=== PATIENT | male | born 1985 | race American Indian/Alaskan Native ===

== ENCOUNTER 2021-10-19 22:25 | Inpatient (IN) | payer SELFPAY ==
[2021-10-19] MEDS ORDERED: ALBUTEROL 2.5 MG/3 ML NEBU IH ONE ×2 (22:36)
[2021-10-19] MEDS ORDERED: IPRATROPIUM 0.02% NEBU 2.5 ML IH ONE ×2 (22:36)
[2021-10-19 23:35] LABS: INR 0.91 (0.87-1.13)
[2021-10-19 23:40] LABS: Creatine Kinase MB 1.6 ng/mL (0.0-4.0)
[2021-10-19 23:41] LABS: Alanine Aminotransferase 16 units/L (7-56); Albumin 4.9 g/dL (3.9-5); Blood Urea Nitrogen 12 mg/dL (9-20); Calcium 9.6 mg/dL (8.4-10.2); Hemolysis Index 19
[2021-10-19 23:42] LABS: BUN/Creatinine Ratio 17
--- NOTE | 2021-10-19 23:46 | XRay Report ---
CHEST 1 VIEW 10/19/2021 10:28 PM INDICATION / CLINICAL INFORMATION: Dyspnea. COMPARISON: None available. FINDINGS: SUPPORT DEVICES: None. HEART / MEDIASTINUM: No significant abnormality. LUNGS / PLEURA: No significant pulmonary or pleural abnormality. No pneumothorax. ADDITIONAL FINDINGS: No significant additional findings. IMPRESSION: No acute abnormality. Signer Name: Reinier Burgos MD Signed: 10/19/2021 11:42 PM Workstation Name: [id number]
[2021-10-20 00:13] LABS: Hemoglobin 14.2 gm/dl (11.8-15.2)
[2021-10-20 00:14] LABS: Mean Corpuscular HGB Conc 33 % (32-34); Mean Corpuscular Volume 91 fl (84-94); Platelet Count 334 K/mm3 (140-440); Red Cell Distribution Width 13.5 % (13.2-15.2)
[2021-10-20 01:05] LABS: ABG Base Excess -0.2 mmol/L (-2.0-3.0); ABG HCO3 26.3 mmol/L (20.0-26.0); ABG Methemoglobin 0.6 % (0.0-1.5); ABG Oxygen Saturation 87.6 % (95.0-99.0); ABG PH 7.339 pH Units (7.350-7.450); ABG PO2 54.4 mm Hg (80.0-90.0)
[2021-10-20 01:10] LABS: Basophils % (Manual) 0 % (0.0-1.8); RBC Morphology Normal; Total Cells Counted 100
[2021-10-20 01:11] LABS: Large Platelets Rare; Platelet Estimate Consistent w Auto
--- NOTE | 2021-10-20 05:33 | Emergency Department Report ---
ED General Adult HPI - General Chief complaint: Dyspnea/Respdistress Stated complaint: RESPIRATORY DISTRESS PUI?: No Time Seen by Provider: 10/19/21 22:34 Source: patient Mode of arrival: Stretcher Limitations: No Limitations - History of Present Illness Initial comments: SOB and GLENYS , pt has history of bronchitis denies any COPD or CHF fever or cough, has been given albuterol and steriods and mg en route here , was brought in on cpap, -: Gradual, days(s) Location: chest Radiation: non-radiation Improves with: none Worsens with: none Associated Symptoms: cough. denies: denies other symptoms, confusion Treatments Prior to Arrival: none - Related Data Allergies Allergy/AdvReac Type Severity Reaction Status Date / Time No Known Allergies Allergy Verified 10/19/21 23:38 ED Review of Systems ROS: Stated complaint: RESPIRATORY DISTRESS Other details as noted in HPI Constitutional: denies: chills, fever Eyes: denies: eye pain, eye discharge, vision change ENT: denies: ear pain, throat pain Respiratory: denies: cough, shortness of breath, wheezing Cardiovascular: denies: chest pain, palpitations Endocrine: no symptoms reported Gastrointestinal: denies: abdominal pain, nausea, diarrhea Genitourinary: denies: urgency, dysuria Musculoskeletal: denies: back pain, joint swelling, arthralgia Skin: denies: rash, lesions Neurological: denies: headache, weakness, paresthesias Psychiatric: denies: anxiety, depression Hematological/Lymphatic: denies: easy bleeding, easy bruising ED Past Medical Hx - Past Medical History Previous Medical History?: No Hx Hypertension: No ED Physical Exam - General Limitations: No Limitations General appearance: alert, anxious, in distress - Head Head exam: Present: atraumatic, normocephalic - Eye Eye exam: Present: normal appearance - ENT ENT exam: Present: mucous membranes moist - Neck Neck exam: Present: normal inspection - Respiratory Respiratory exam: Present: wheezes, rhonchi. Absent: respiratory distress - Cardiovascular Cardiovascular Exam: Present: regular rate, normal rhythm. Absent: systolic murmur, diastolic murmur, rubs, gallop - GI/Abdominal GI/Abdominal exam: Present: soft, normal bowel sounds - Rectal Rectal exam: Present: deferred - Extremities Exam Extremities exam: Present: normal inspection - Back Exam Back exam: Present: normal inspection - Neurological Exam Neurological exam: Present: alert, oriented X3 - Psychiatric Psychiatric exam: Present: normal affect, normal mood - Skin Skin exam: Present: warm, dry, intact, normal color. Absent: rash ED Course Vital Signs 10/19/21 10/19/21 10/20/21 23:20 23:48 01:15 Temperature 98.6 F Pulse Rate 100 H Pulse Rate [ 112 H Anterior Bilateral] Respiratory 20 Rate Respiratory 20 Rate [Anterior Bilateral] Blood Pressure 180/100 [Right] O2 Sat by Pulse 97 96 Oximetry ED Medical Decision Making - Lab Data Result diagrams: 10/19/21 22:58 10/19/21 22:58 Critical care attestation.: If time is entered above; I have spent that time in minutes in the direct care of this critically ill patient, excluding procedure time. ED Disposition Clinical Impression: SOB (shortness of breath), Hypoxia, Bronchitis Disposition: ADMITTED INPATIENT Is pt being admited?: Yes Does the pt Need Aspirin: No Condition: Stable Instructions: Chronic Bronchitis (ED) Referrals: PRIMARY CARE, [Primary Care Provider] - 3-5 Days
[2021-10-20] MEDS ORDERED: MORPHINE 2 MG/1 ML INJ IV PRN (05:53)
[2021-10-20] MEDS ORDERED: ALBUTEROL 2.5 MG/3 ML NEBU IH PRN (05:53)
[2021-10-20] MEDS ORDERED: ONDANSETRON 4 MG/2 ML INJ IV PRN (05:53)
[2021-10-20] MEDS ORDERED: ACETAMINOPHEN 325 MG TAB PO PRN (05:53)
[2021-10-20] MEDS ORDERED: MORPHINE 4 MG/1 ML INJ IV PRN (05:53)
[2021-10-20] MEDS ORDERED: AZITHROMYCIN/NS 500 MG/250 ML 500 MG/250 ML BAG IV SCH (06:00)
--- NOTE | 2021-10-20 06:01 | History and Physical Report ---
History of Present Illness Date of examination: 10/20/21 Date of admission: 10/20/21 Chief complaint: Dyspnea Hypoxia History of present illness: 36 years male with history of bronchitis and smoking weed was brought to the emergency room because of progressive shortness of breath. Patient denied any fever or cough. Patient has a history of a smoking weed patient has been given albuterol and a steroid and magnesium in route here patient was brought in on CPAP. In the emergency room patient blood gas shows pH 7.339. PCO2 50.0, PO2 54.4, bicarb 26.3, O2 sat 87.6. As soon as patient is off oxygen O2 sat dropped to 80s. We are going to admit the patient we will put the patient on breathing treatment and a steroid and antibiotic Past History Past Medical History: other (Bronchitis and smoking weed) Past Surgical History: No surgical history Social history: smoking Family history: hypertension Medications and Allergies Allergies Allergy/AdvReac Type Severity Reaction Status Date / Time No Known Allergies Allergy Verified 10/19/21 23:38 Active Meds: Active Medications Levofloxacin/Dextrose (Levaquin 500mg/100ml) 500 mg in 100 mls @ 100 mls/hr IV ONCE ONE; Protocol Stop: 10/20/21 06:49 Review of Systems All systems: negative Cardiovascular: shortness of breath, dyspnea on exertion Respiratory: cough, shortness of breath, dyspnea on exertion, wheezing Exam - Constitutional Vitals: Temp Pulse Resp BP Pulse Ox 98.6 F 100 H 20 180/100 96 10/19/21 23:48 10/19/21 23:48 10/19/21 23:48 10/19/21 23:48 10/20/21 01:15 General appearance: Present: no acute distress, well-nourished - EENT Eyes: Present: PERRL ENT: hearing intact, clear oral mucosa - Neck Neck: Present: supple, normal ROM - Respiratory Respiratory effort: normal Respiratory: bilateral: wheezing - Cardiovascular Heart Sounds: Present: S1 & S2. Absent: rub, click - Extremities Extremities: pulses symmetrical, No edema Peripheral Pulses: within normal limits - Abdominal General gastrointestinal: Present: soft, non-tender, non-distended, normal bowel sounds Male genitourinary: Present: normal - Integumentary Integumentary: Present: clear, warm, dry - Musculoskeletal Musculoskeletal: gait normal, strength equal bilaterally - Psychiatric Psychiatric: appropriate mood/affect, intact judgment & insight - Neurologic Neurologic: CNII-XII intact, moves all extremities HEART Score - HEART Score Troponin: Troponin T < 0.010 ng/mL (0.00-0.029) 10/19/21 22:58 Results - Labs CBC & Chem 7: 10/19/21 22:58 07 22:58 Labs: Laboratory Last Values WBC 13.7 K/mm3 (4.5-11.0) H 10/19/21 22:58 RBC 4.70 M/mm3 (3.65-5.03) 10/19/21 22:58 Hgb 14.2 gm/dl (11.8-15.2) 10/19/21 22:58 Hct 43.0 % (35.5-45.6) 10/19/21 22:58 MCV 91 fl (84-94) 10/19/21 22:58 MCH 30 pg (28-32) 10/19/21 22:58 MCHC 33 % (32-34) 10/19/21 22:58 RDW 13.5 % (13.2-15.2) 10/19/21 22:58 Plt Count 334 K/mm3 (140-440) 10/19/21 22:58 Add Manual Diff Complete 10/19/21 22:58 Total Counted 100 10/19/21 22:58 Seg Neuts % (Manual) 58.0 % (40.0-70.0) 10/19/21 22:58 Band Neutrophils % 0 % 10/19/21 22:58 Lymphocytes % (Manual) 28.0 % (13.4-35.0) 10/19/21 22:58 Reactive Lymphs % (Man) 0 % 10/19/21 22:58 Monocytes % (Manual) 5.0 % (0.0-7.3) 10/19/21 22:58 Eosinophils % (Manual) 9.0 % (0.0-4.3) H 10/19/21 22:58 Basophils % (Manual) 0 % (0.0-1.8) 10/19/21 22:58 Metamyelocytes % 0 % 10/19/21 22:58 Myelocytes % 0 % 10/19/21 22:58 Promyelocytes % 0 % 10/19/21 22:58 Blast Cells % 0 % 10/19/21 22:58 Nucleated RBC % Not Reportable 10/19/21 22:58 Seg Neutrophils # Man 7.9 K/mm3 (1.8-7.7) H 10/19/21 22:58 Band Neutrophils # 0.0 K/mm3 10/19/21 22:58 Lymphocytes # (Manual) 3.8 K/mm3 (1.2-5.4) 10/19/21 22:58 Abs React Lymphs (Man) 0.0 K/mm3 10/19/21 22:58 Monocytes # (Manual) 0.7 K/mm3 (0.0-0.8) 10/19/21 22:58 Eosinophils # (Manual) 1.2 K/mm3 (0.0-0.4) H 10/19/21 22:58 Basophils # (Manual) 0.0 K/mm3 (0.0-0.1) 10/19/21 22:58 Metamyelocytes # 0.0 K/mm3 10/19/21 22:58 Myelocytes # 0.0 K/mm3 10/19/21 22:58 Promyelocytes # 0.0 K/mm3 10/19/21 22:58 Blast Cells # 0.0 K/mm3 10/19/21 22:58 WBC Morphology Not Reportable 10/19/21 22:58 Hypersegmented Neuts Not Reportable 10/19/21 22:58 Hyposegmented Neuts Not Reportable 10/19/21 22:58 Hypogranular Neuts Not Reportable 10/19/21 22:58 Smudge Cells Not Reportable 10/19/21 22:58 Toxic Granulation Not Reportable 10/19/21 22:58 Toxic Vacuolation Not Reportable 10/19/21 22:58 Dohle Bodies Not Reportable 10/19/21 22:58 Pelger-Huet Anomaly Not Reportable 10/19/21 22:58 Mary Alice Rods Not Reportable 10/19/21 22:58 Platelet Estimate Consistent w auto 10/19/21 22:58 Clumped Platelets Not Reportable 10/19/21 22:58 Plt Clumps, EDTA Not Reportable 10/19/21 22:58 Large Platelets Rare 10/19/21 22:58 Giant Platelets Not Reportable 10/19/21 22:58 Platelet Satelliting Not Reportable 10/19/21 22:58 Plt Morphology Comment Not Reportable 10/19/21 22:58 RBC Morphology Normal 10/19/21 22:58 Dimorphic RBCs Not Reportable 10/19/21 22:58 Polychromasia Not Reportable 10/19/21 22:58 Hypochromasia Not Reportable 10/19/21 22:58 Poikilocytosis Not Reportable 10/19/21 22:58 Anisocytosis Not Reportable 10/19/21 22:58 Microcytosis Not Reportable 10/19/21 22:58 Macrocytosis Not Reportable 10/19/21 22:58 Spherocytes Not Reportable 10/19/21 22:58 Pappenheimer Bodies Not Reportable 10/19/21 22:58 Sickle Cells Not Reportable 10/19/21 22:58 Target Cells Not Reportable 10/19/21 22:58 Tear Drop Cells Not Reportable 10/19/21 22:58 Ovalocytes Not Reportable 10/19/21 22:58 Helmet Cells Not Reportable 10/19/21 22:58 [place] Bodies Not Reportable 10/19/21 22:58 [place] Rings Not Reportable 10/19/21 22:58 [place] Cells Not Reportable 10/19/21 22:58 Bite Cells Not Reportable 10/19/21 22:58 Crenated Cell Not Reportable 10/19/21 22:58 Elliptocytes Not Reportable 10/19/21 22:58 Acanthocytes (Spur) Not Reportable 10/19/21 22:58 Rouleaux Not Reportable 10/19/21 22:58 Hemoglobin C Crystals Not Reportable 10/19/21 22:58 Schistocytes Not Reportable 10/19/21 22:58 Malaria parasites Not Reportable 10/19/21 22:58 [place] Bodies Not Reportable 10/19/21 22:58 Hem Pathologist Commnt No 10/19/21 22:58 PT 13.2 Sec. (12.2-14.9) 10/19/21 22:58 INR 0.91 (0.87-1.13) 10/19/21 22:58 ABG pH 7.339 pH Units (7.350-7.450) L 10/20/21 00:40 ABG pCO2 50.0 mm Hg 10/20/21 00:40 ABG pO2 54.4 mm Hg (80.0-90.0) L 10/20/21 00:40 ABG HCO3 26.3 mmol/L (20.0-26.0) H 10/20/21 00:40 ABG O2 Saturation 87.6 % (95.0-99.0) L 10/20/21 00:40 ABG O2 Content 17.5 (0.0-44) 10/20/21 00:40 ABG Base Excess -0.2 mmol/L (-2.0-3.0) 10/20/21 00:40 ABG Hemoglobin 14.5 gm/dl (14.0-18.0) 10/20/21 00:40 ABG Carboxyhemoglobin 1.2 % (0.0-5.0) 10/20/21 00:40 ABG Methemoglobin 0.6 % (0.0-1.5) 10/20/21 00:40 Oxyhemoglobin 86.0 % (95.0-99.0) L 10/20/21 00:40 FiO2 21 % 10/20/21 00:40 Sodium 140 mmol/L (137-145) 10/19/21 22:58 Potassium 4.1 mmol/L (3.6-5.0) 10/19/21 22:58 Chloride 101.3 mmol/L (98-107) 10/19/21 22:58 Carbon Dioxide 24 mmol/L (22-30) 10/19/21 22:58 Anion Gap 19 mmol/L 10/19/21 22:58 BUN 12 mg/dL (9-20) 10/19/21 22:58 Creatinine 0.7 mg/dL (0.8-1.3) L 10/19/21 22:58 Estimated GFR > 60 ml/min 10/19/21 22:58 BUN/Creatinine Ratio 17 % 10/19/21 22:58 Glucose 132 mg/dL (75-100) H 10/19/21 22:58 Lactic Acid 1.30 mmol/L (0.7-2.0) 10/19/21 22:58 Calcium 9.6 mg/dL (8.4-10.2) 10/19/21 22:58 Magnesium 2.50 mg/dL (1.7-2.3) H 10/19/21 22:58 Total Bilirubin 0.20 mg/dL (0.1-1.2) 10/19/21 22:58 AST 17 units/L (5-40) 10/19/21 22:58 ALT 16 units/L (7-56) 10/19/21 22:58 Alkaline Phosphatase 78 units/L (35-129) 10/19/21 22:58 Total Creatine Kinase 71 units/L (55-170) 10/19/21 22:58 CK-MB (CK-2) 1.6 ng/mL (0.0-4.0) 10/19/21 22:58 CK-MB (CK-2) Rel Index 2.2 (0-4) 10/19/21 22:58 Troponin T < 0.010 ng/mL (0.00-0.029) 10/19/21 22:58 NT-Pro-B Natriuret Pep < 5 pg/mL (0-450) 10/19/21 22:58 Total Protein 7.2 g/dL (6.3-8.2) 10/19/21 22:58 Albumin 4.9 g/dL (3.9-5) 10/19/21 22:58 Albumin/Globulin Ratio 2.1 % 10/19/21 22:58 Lipase 15 units/L (13-60) 10/19/21 22:58 - Imaging and Cardiology Chest x-ray: report reviewed Assessment and Plan VTE prophylaxis?: Chemical Plan of care discussed with patient/family: Yes - Patient Problems (1) SOB (shortness of breath) Current Visit: Yes Status: Acute Plan to address problem: [facility] O[facility] by nasal cannula 3 L/min. Albuterol via nebulizer every 4 hours as needed. DuoNeb via nebulizer every 4 hours. Solu-Medrol 60 mg IV every 8 hours. Zithromax 500 mg IV daily. (2) Smoking Current Visit: Yes Status: Acute Plan to address problem: We counseled the patient regarding quitting smoking. We will put the patient pa tient on nicotine patch if needed (3) Bronchitis Current Visit: Yes Status: Acute Plan to address problem: Oxygen by nasal cannula 3 L/min. Albuterol via nebulizer every 4 hours as needed. DuoNeb via nebulizer every 4 hours. Solu-Medrol 60 mg IV every 8 hours. Zithromax 500 mg IV daily. (4) Hypoxia Current Visit: Yes Status: Acute Plan to address problem: Oxygen by nasal cannula 3 L/min. Albuterol via nebulizer every 4 hours as needed. DuoNeb via nebulizer every 4 hours. (5) DVT prophylaxis Current Visit: Yes Status: Acute Plan to address problem: Heparin 5000 units subcu every 12 hours for DVT prophylaxis. Pepcid 20 mg p.o. twice daily for GI prophylaxis. Patient is a full code
--- NOTE | 2021-10-20 08:00 | Progress Note ---
Assessment and Plan Assessment and plan: 36 years male with history of bronchitis and smoking weed was brought to the emergency room because of progressive shortness of breath. Patient denied any fever or cough. Patient has a history of a smoking weed patient has been given albuterol and a steroid and magnesium in route here patient was brought in on CPAP. In the emergency room patient blood gas shows pH 7.339. PCO2 50.0, PO2 54.4, bicarb 26.3, O2 sat 87.6. As soon as patient is off oxygen O2 sat dropped to 80s. We are going to admit the patient we will put the patient on breathing treatment and a steroid and antibiotic - Patient Problems (1) SOB (shortness of breath) Current Visit: Yes Status: Acute Plan to address problem: Admit the patient to the [facility]. Oxygen by nasal cannula 3 L/min. Albuterol via nebulizer every 4 hours as needed. DuoNeb via nebulizer every 4 hours. Solu-Medrol 60 mg IV every 8 hours. Zithromax 500 mg IV daily. (2) Smoking Current Visit: Yes Status: Acute Plan to address problem: We counseled the patient regarding quitting smoking. We will put the patient patient on nicotine patch if needed (3) Bronchitis Current Visit: Yes Status: Acute Plan to address problem: Oxygen by nasal cannula 3 L/min. Albuterol via nebulizer every 4 hours as needed. DuoNeb via nebulizer every 4 hours. Solu-Medrol 60 mg IV every 8 hours. Zithromax 500 mg IV daily. (4) Hypoxia Current Visit: Yes Status: Acute Plan to address problem: Oxygen by nasal cannula 3 L/min. Albuterol via nebulizer every 4 hours as needed. DuoNeb via nebulizer every 4 hours. (5) DVT prophylaxis Current Visit: Yes Status: Acute Plan to address problem: Heparin 5000 units subcu every 12 hours for DVT prophylaxis. Pepcid 20 mg p.o. twice daily for GI prophylaxis. Patient is a full code History Interval history: Patient is seen and examined. Lab and data reviewed. Patient complained of shortness of breath. Patient is wheezing. Hospitalist Physical - Constitutional Vitals: Temp Pulse Resp BP Pulse Ox 98.6 F 100 H 20 180/100 96 10/19/21 23:48 10/19/21 23:48 10/19/21 23:48 10/19/21 23:48 10/20/21 01:15 General appearance: Present: no acute distress, well-nourished - EENT Eyes: Present: PERRL, EOM intact ENT: clear oral mucosa, dentition normal - Neck Neck: Present: supple, normal ROM - Respiratory Respiratory effort: normal Respiratory: bilateral: wheezing - Cardiovascular Rhythm: regular Heart Sounds: Present: S1 & S2 - Extremities Extremities: no ischemia, No edema, normal color, Full ROM - Abdominal General gastrointestinal: soft, non-tender, non-distended, normal bowel sounds - Integumentary Integumentary: Present: clear, warm, dry - Psychiatric Psychiatric: appropriate mood/affect, intact judgment & insight - Neurologic Neurologic: CNII-XII intact, moves all extremities, gait normal HEART Score - HEART Score Troponin: Troponin T < 0.010 ng/mL (0.00-0.029) 10/19/21 22:58 Results - Labs CBC & Chem 7: 10/19/21 22:58 10/19/21 22:58 Labs: Laboratory Last Values WBC 13.7 K/mm3 (4.5-11.0) H 10/19/21 22:58 RBC 4.70 M/mm3 (3.65-5.03) 10/19/21 22:58 Hgb 14.2 gm/dl (11.8-15.2) 10/19/21 22:58 Hct 43.0 % (35.5-45.6) 10/19/21 22:58 MCV 91 fl (84-94) 10/19/21 22:58 MCH 30 pg (28-32) 10/19/21 22:58 MCHC 33 % (32-34) 10/19/21 22:58 RDW 13.5 % (13.2-15.2) 10/19/21 22:58 Plt Count 334 K/mm3 (140-440) 10/19/21 22:58 Add Manual Diff Complete 10/19/21 22:58 Total Counted 100 10/19/21 22:58 Seg Neuts % (Manual) 58.0 % (40.0-70.0) 10/19/21 22:58 Band Neutrophils % 0 % 10/19/21 22:58 Lymphocytes % (Manual) 28.0 % (13.4-35.0) 10/19/21 22:58 Reactive Lymphs % (Man) 0 % 10/19/21 22:58 Monocytes % (Manual) 5.0 % (0.0-7.3) 10/19/21 22:58 Eosinophils % (Manual) 9.0 % (0.0-4.3) H 10/19/21 22:58 Basophils % (Manual) 0 % (0.0-1.8) 10/19/21 22:58 Metamyelocytes % 0 % 10/19/21 22:58 Myelocytes % 0 % 10/19/21 22:58 Promyelocytes % 0 % 10/19/21 22:58 Blast Cells % 0 % 10/19/21 22:58 Nucleated RBC % Not Reportable 10/19/21 22:58 Seg Neutrophils # Man 7.9 K/mm3 (1.8-7.7) H 10/19/21 22:58 Band Neutrophils # 0.0 K/mm3 10/19/21 22:58 Lymphocytes # (Manual) 3.8 K/mm3 (1.2-5.4) 10/19/21 22:58 Abs React Lymphs (Man) 0.0 K/mm3 10/19/21 22:58 Monocytes # (Manual) 0.7 K/mm3 (0.0-0.8) 10/19/21 22:58 Eosinophils # (Manual) 1.2 K/mm3 (0.0-0.4) H 10/19/21 22:58 Basophils # (Manual) 0.0 K/mm3 (0.0-0.1) 10/19/21 22:58 Metamyelocytes # 0.0 K/mm3 10/19/21 22:58 Myelocytes # 0.0 K/mm3 10/19/21 22:58 Promyelocytes # 0.0 K/mm3 10/19/21 22:58 Blast Cells # 0.0 K/mm3 10/19/21 22:58 WBC Morphology Not Reportable 10/19/21 22:58 Hypersegmented Neuts Not Reportable 10/19/21 22:58 Hyposegmented Neuts Not Reportable 10/19/21 22:58 Hypogranular Neuts Not Reportable 10/19/21 22:58 Smudge Cells Not Reportable 10/19/21 22:58 Toxic Granulation Not Reportable 10/19/21 22:58 Toxic Vacuolation Not Reportable 10/19/21 22:58 Dohle Bodies Not Reportable 10/19/21 22:58 Pelger-Huet Anomaly Not Reportable 10/19/21 22:58 Mary Alice Rods Not Reportable 10/19/21 22:58 Platelet Estimate Consistent w auto 10/19/21 22:58 Clumped Platelets Not Reportable 10/19/21 22:58 Plt Clumps, EDTA Not Reportable 10/19/21 22:58 Large Platelets Rare 10/19/21 22:58 Giant Platelets Not Reportable 10/19/21 22:58 Platelet Satelliting Not Reportable 10/19/21 22:58 Plt Morphology Comment Not Reportable 10/19/21 22:58 RBC Morphology Normal 10/19/21 22:58 Dimorphic RBCs Not Reportable 10/19/21 22:58 Polychromasia Not Reportable 10/19/21 22:58 Hypochromasia Not Reportable 10/19/21 22:58 Poikilocytosis Not Reportable 10/19/21 22:58 Anisocytosis Not Reportable 10/19/21 22:58 Microcytosis Not Reportable 10/19/21 22:58 Macrocytosis Not Reportable 10/19/21 22:58 Spherocytes Not Reportable 10/19/21 22:58 Pappenheimer Bodies Not Reportable 10/19/21 22:58 Sickle Cells Not Reportable 10/19/21 22:58 Target Cells Not Reportable 10/19/21 22:58 Tear Drop Cells Not Reportable 10/19/21 22:58 Ovalocytes Not Reportable 10/19/21 22:58 Helmet Cells Not Reportable 10/19/21 22:58 [place] Bodies Not Reportable 10/19/21 22:58 [place] Rings Not Reportable 10/19/21 22:58 [place] Cells Not Reportable 10/19/21 22:58 Bite Cells Not Reportable 10/19/21 22:58 Crenated Cell Not Reportable 10/19/21 22:58 Elliptocytes Not Reportable 10/19/21 22:58 Acanthocytes (Spur) Not Reportable 10/19/21 22:58 Rouleaux Not Reportable 10/19/21 22:58 Hemoglobin C Crystals Not Reportable 10/19/21 22:58 Schistocytes Not Reportable 10/19/21 22:58 Malaria parasites Not Reportable 10/19/21 22:58 [place] Bodies Not Reportable 10/19/21 22:58 Hem Pathologist Commnt No 10/19/21 22:58 PT 13.2 Sec. (12.2-14.9) 10/19/21 22:58 INR 0.91 (0.87-1.13) 10/19/21 22:58 ABG pH 7.339 pH Units (7.350-7.450) L 10/20/21 00:40 ABG pCO2 50.0 mm Hg 10/20/21 00:40 ABG pO2 54.4 mm Hg (80.0-90.0) L 10/20/21 00:40 ABG HCO3 26.3 mmol/L (20.0-26.0) H 10/20/21 00:40 ABG O2 Saturation 87.6 % (95.0-99.0) L 10/20/21 00:40 ABG O2 Content 17.5 (0.0-44) 10/20/21 00:40 ABG Base Excess -0.2 mmol/L (-2.0-3.0) 10/20/21 00:40 ABG Hemoglobin 14.5 gm/dl (14.0-18.0) 10/20/21 00:40 ABG Carboxyhemoglobin 1.2 % (0.0-5.0) 10/20/21 00:40 ABG Methemoglobin 0.6 % (0.0-1.5) 10/20/21 00:40 Oxyhemoglobin 86.0 % (95.0-99.0) L 10/20/21 00:40 FiO2 21 % 10/20/21 00:40 Sodium 140 mmol/L (137-145) 10/19/21 22:58 Potassium 4.1 mmol/L (3.6-5.0) 10/19/21 22:58 Chloride 101.3 mmol/L (98-107) 10/19/21 22:58 Carbon Dioxide 24 mmol/L (22-30) 10/19/21 22:58 Anion Gap 19 mmol/L 10/19/21 22:58 BUN 12 mg/dL (9-20) 10/19/21 22:58 Creatinine 0.7 mg/dL (0.8-1.3) L 10/19/21 22:58 Estimated GFR > 60 ml/min 10/19/21 22:58 BUN/Creatinine Ratio 17 % 10/19/21 22:58 Glucose 132 mg/dL (75-100) H 10/19/21 22:58 Lactic Acid 1.30 mmol/L (0.7-2.0) 10/19/21 22:58 Calcium 9.6 mg/dL (8.4-10.2) 10/19/21 22:58 Magnesium 2.50 mg/dL (1.7-2.3) H 10/19/21 22:58 Total Bilirubin 0.20 mg/dL (0.1-1.2) 10/19/21 22:58 AST 17 units/L (5-40) 10/19/21 22:58 ALT 16 units/L (7-56) 10/19/21 22:58 Alkaline Phosphatase 78 units/L (35-129) 10/19/21 22:58 Total Creatine Kinase 71 units/L (55-170) 10/19/21 22:58 CK-MB (CK-2) 1.6 ng/mL (0.0-4.0) 10/19/21 22:58 CK-MB (CK-2) Rel Index 2.2 (0-4) 10/19/21 22:58 Troponin T < 0.010 ng/mL (0.00-0.029) 10/19/21 22:58 NT-Pro-B Natriuret Pep < 5 pg/mL (0-450) 10/19/21 22:58 Total Protein 7.2 g/dL (6.3-8.2) 10/19/21 22:58 Albumin 4.9 g/dL (3.9-5) 10/19/21 22:58 Albumin/Globulin Ratio 2.1 % 10/19/21 22:58 Lipase 15 units/L (13-60) 10/19/21 22:58 - Imaging and Cardiology Chest x-ray: report reviewed Active Medications - Current Medications Current Medications: Generic Name Dose Route Start Last Admin Trade Name Freq PRN Reason Stop Dose Admin Acetaminophen 650 mg 10/20/21 05:53 Acetaminophen 325 Mg Tab PO Q4H PRN Pain MILD(1-3)/Fever >100.5/HARRIS Albuterol 2.5 mg 10/20/21 05:53 Albuterol 2.5 Mg/3 Ml Nebu IH Q3HRT PRN Shortness Of Breath Albuterol/Ipratropium 1 ampul 10/20/21 08:00 Ipratropium/Albuterol Sulfate 3 Ml Ampul.Neb IH Q6HRT FELICITA Azithromycin 500 mg 10/21/21 10:00 Azithromycin 250 Mg Tab PO 10/24/21 10:59 QDAY FELICITA Famotidine 20 mg 10/20/21 10:00 Famotidine 20 Mg Tab PO BID FELICITA Heparin Sodium (Porcine) 5,000 unit 10/20/21 06:00 Heparin 5,000 Unit/1 Ml Vial SUB-Q Q8HR [facility] Azithromycin 500 mg in 250 mls @ 250 mls/hr 10/20/21 06:00 Zithromax/Ns IV 10/20/21 10:59 Q24H FELICITA Methylprednisolone Sodium Succinate 60 mg 10/20/21 06:00 Methylprednisolone Sod Succinate 40 Mg/1 Ml Inj IV Q8HR FELICITA Morphine Sulfate 2 mg 10/20/21 05:53 Morphine 2 Mg/1 Ml Inj IV Q4H PRN Pain, Moderate (4-6) Morphine Sulfate 4 mg 10/20/21 05:53 Morphine 4 Mg/1 Ml Inj IV Q4H PRN Pain , Severe (7-10) Ondansetron HCl 4 mg 10/20/21 05:53 Ondansetron 4 Mg/2 Ml Inj IV Q8H PRN Nausea And Vomiting Sodium Chloride 10 ml 10/20/21 10:00 Sodium Chloride 0.9% 10 Ml Flush Syringe IV BID FELICITA Sodium Chloride 10 ml 10/20/21 05:53 Sodium Chloride 0.9% 10 Ml Flush Syringe IV PRN PRN LINE FLUSH Nutrition/Malnutrition Assess - Malnutrition Assessment Minimum of two criteria: No physical signs of malnutrition - Attestation Statement I have reviewed and agreed w/ Malnutrition eval & tx plan: Yes
[2021-10-20] MEDS: HEPARIN 5,000 UNIT/1 ML VIAL SUB-Q SCH ×3 (08:08→22:47)
[2021-10-20] MEDS: methylPREDNISolone Sod Succinate 40 MG/1 ML INJ IV SCH ×3 (08:09→22:48)
[2021-10-20] MEDS: IPRATROPIUM/ALBUTEROL SULFATE 3 ML AMPUL.NEB IH SCH ×3 (08:50→21:13)
[2021-10-20] MEDS: FAMOTIDINE 20 MG TAB PO SCH ×2 (12:55→22:47)
[2021-10-21] MEDS: IPRATROPIUM/ALBUTEROL SULFATE 3 ML AMPUL.NEB IH SCH ×2 (02:00→08:27)
[2021-10-21 05:09] VITALS: BP 118/85
[2021-10-21] MEDS: methylPREDNISolone Sod Succinate 40 MG/1 ML INJ IV SCH (06:02)
[2021-10-21 06:03] LABS: BUN/Creatinine Ratio 21; Blood Urea Nitrogen 17 mg/dL (9-20); Calcium 9.8 mg/dL (8.4-10.2); Hemolysis Index 9
[2021-10-21] MEDS: HEPARIN 5,000 UNIT/1 ML VIAL SUB-Q SCH (06:03)
[2021-10-21 06:21] LABS: Hematocrit 41.4 % (35.5-45.6); Hemoglobin 13.4 gm/dl (11.8-15.2); Mean Corpuscular HGB Conc 33 % (32-34); Mean Corpuscular Volume 92 fl (84-94); Platelet Count 321 K/mm3 (140-440); Red Blood Count 4.52 M/mm3 (3.65-5.03); Red Cell Distribution Width 13.6 % (13.2-15.2)
[2021-10-21 06:22] LABS: Basophils # (Auto) 0.1 K/mm3 (0.0-0.1); Basophils % (Auto) 0.3 % (0.0-1.8); Lymphocytes # (Auto) 1.1 K/mm3 (1.2-5.4); Lymphocytes % (Auto) 5.4 % (13.4-35.0); Monocytes # (Auto) 0.5 K/mm3 (0.0-0.8); Monocytes % (Auto) 2.5 % (0.0-7.3)
--- NOTE | 2021-10-21 07:55 | Progress Note ---
Assessment and Plan Assessment and plan: -- Acute hypoxic respiratory failure On supplemental oxygen by nasal cannula 3 L/min. Albuterol via nebulizer every 4 hours as needed. DuoNeb via nebulizer every 4 hours. Solu-Medrol 60 mg IV every 8 hours. Zithromax 500 mg IV daily. --Acute bronchitis Oxygen by nasal cannula 3 L/min. Albuterol via nebulizer every 4 hours as needed. DuoNeb via nebulizer every 4 hours. Solu-Medrol 60 mg IV every 8 hours. Zithromax 500 mg IV daily. --Acute pneumonitis Continue empiric antibiotics --Leukocytosis; Due to acute bronchitis and pneumonitis --Ongoing tobacco use We counseled the patient regarding quitting smoking. We will put the patient patient on nicotine patch if needed Smoking cessation counseling --Obesity; BMI 32.1 Patient needs weight reduction when medically stable Counseling done --Full CODE STATUS --DVT prophylaxis Heparin 5000 units subcu every 12 hours for DVT prophylaxis. Pepcid 20 mg p.o. twice daily for GI prophylaxis. Patient is a full code Patient left AMA History Interval history: I have seen and examined the patient at the bedside Patient's chart and medications reviewed patient was admitted with acute bronchitis and worsening shortness of breath and wheezing Noted to have acute hypoxic respiratory failure requiring supplemental oxygen 2 to 4 L nasal cannula Patient continues to have shortness of breath and wheezing slightly improved since yesterday denies chest pain or palpitations Vital signs noted Hospitalist Physical - Constitutional Vitals: Temp Pulse Resp BP Pulse Ox 97.3 F L 91 H 18 118/85 96 10/21/21 04:29 10/21/21 04:29 10/21/21 04:29 10/21/21 04:29 10/21/21 04:29 General appearance: Present: no acute distress, well-nourished - EENT Eyes: Present: PERRL, EOM intact HEART Score - HEART Score Troponin: Troponin T < 0.010 ng/mL (0.00-0.029) 10/19/21 22:58 Results - Labs CBC & Chem 7: 10/21/21 04:37 10/21/21 04:37 Labs: Laboratory Last Values WBC 21.0 K/mm3 (4.5-11.0) H 10/21/21 04:37 RBC 4.52 M/mm3 (3.65-5.03) 10/21/21 04:37 Hgb 13.4 gm/dl (11.8-15.2) 10/21/21 04:37 Hct 41.4 % (35.5-45.6) 10/21/21 04:37 MCV 92 fl (84-94) 10/21/21 04:37 MCH 30 pg (28-32) 10/21/21 04:37 MCHC 33 % (32-34) 10/21/21 04:37 RDW 13.6 % (13.2-15.2) 10/21/21 04:37 Plt Count 321 K/mm3 (140-440) 10/21/21 04:37 Lymph % (Auto) 5.4 % (13.4-35.0) L 10/21/21 04:37 [place] % (Auto) 2.5 % (0.0-7.3) 10/21/21 04:37 Eos % (Auto) 0.0 % (0.0-4.3) 10/21/21 04:37 Baso % (Auto) 0.3 % (0.0-1.8) 10/21/21 04:37 Lymph # (Auto) 1.1 K/mm3 (1.2-5.4) L 10/21/21 04:37 [place] # (Auto) 0.5 K/mm3 (0.0-0.8) 10/21/21 04:37 Eos # (Auto) 0.0 K/mm3 (0.0-0.4) 10/21/21 04:37 Baso # (Auto) 0.1 K/mm3 (0.0-0.1) 10/21/21 04:37 Add Manual Diff Complete 10/19/21 22:58 Total Counted 100 10/19/21 22:58 Seg Neutrophils % 91.8 % (40.0-70.0) H 10/21/21 04:37 Seg Neuts % (Manual) 58.0 % (40.0-70.0) 10/19/21 22:58 Band Neutrophils % 0 % 10/19/21 22:58 Lymphocytes % (Manual) 28.0 % (13.4-35.0) 10/19/21 22:58 Reactive Lymphs % (Man) 0 % 10/19/21 22:58 Monocytes % (Manual) 5.0 % (0.0-7.3) 10/19/21 22:58 Eosinophils % (Manual) 9.0 % (0.0-4.3) H 10/19/21 22:58 Basophils % (Manual) 0 % (0.0-1.8) 10/19/21 22:58 Metamyelocytes % 0 % 10/19/21 22:58 Myelocytes % 0 % 10/19/21 22:58 Promyelocytes % 0 % 10/19/21 22:58 Blast Cells % 0 % 10/19/21 22:58 Nucleated RBC % Not Reportable 10/19/21 22:58 Seg Neutrophils # 19.3 K/mm3 (1.8-7.7) H 10/21/21 04:37 Seg Neutrophils # Man 7.9 K/mm3 (1.8-7.7) H 10/19/21 22:58 Band Neutrophils # 0.0 K/mm3 10/19/21 22:58 Lymphocytes # (Manual) 3.8 K/mm3 (1.2-5.4) 10/19/21 22:58 Abs React Lymphs (Man) 0.0 K/mm3 10/19/21 22:58 Monocytes # (Manual) 0.7 K/mm3 (0.0-0.8) 10/19/21 22:58 Eosinophils # (Manual) 1.2 K/mm3 (0.0-0.4) H 10/19/21 22:58 Basophils # (Manual) 0.0 K/mm3 (0.0-0.1) 10/19/21 22:58 Metamyelocytes # 0.0 K/mm3 10/19/21 22:58 Myelocytes # 0.0 K/mm3 10/19/21 22:58 Promyelocytes # 0.0 K/mm3 10/19/21 22:58 Blast Cells # 0.0 K/mm3 10/19/21 22:58 WBC Morphology Not Reportable 10/19/21 22:58 Hypersegmented Neuts Not Reportable 10/19/21 22:58 Hyposegmented Neuts Not Reportable 10/19/21 22:58 Hypogranular Neuts Not Reportable 10/19/21 22:58 Smudge Cells Not Reportable 10/19/21 22:58 Toxic Granulation Not Reportable 10/19/21 22:58 Toxic Vacuolation Not Reportable 10/19/21 22:58 Dohle Bodies Not Reportable 10/19/21 22:58 Pelger-Huet Anomaly Not Reportable 10/19/21 22:58 Mary Alice Rods Not Reportable 10/19/21 22:58 Platelet Estimate Consistent w auto 10/19/21 22:58 Clumped Platelets Not Reportable 10/19/21 22:58 Plt Clumps, EDTA Not Reportable 10/19/21 22:58 Large Platelets Rare 10/19/21 22:58 Giant Platelets Not Reportable 10/19/21 22:58 Platelet Satelliting Not Reportable 10/19/21 22:58 Plt Morphology Comment Not Reportable 10/19/21 22:58 RBC Morphology Normal 10/19/21 22:58 Dimorphic RBCs Not Reportable 10/19/21 22:58 Polychromasia Not Reportable 10/19/21 22:58 Hypochromasia Not Reportable 10/19/21 22:58 Poikilocytosis Not Reportable 10/19/21 22:58 Anisocytosis Not Reportable 10/19/21 22:58 Microcytosis Not Reportable 10/19/21 22:58 Macrocytosis Not Reportable 10/19/21 22:58 Spherocytes Not Reportable 10/19/21 22:58 Pappenheimer Bodies Not Reportable 10/19/21 22:58 Sickle Cells Not Reportable 10/19/21 22:58 Target Cells Not Reportable 10/19/21 22:58 Tear Drop Cells Not Reportable 10/19/21 22:58 Ovalocytes Not Reportable 10/19/21 22:58 Helmet Cells Not Reportable 10/19/21 22:58 [place] Bodies Not Reportable 10/19/21 22:58 [place] Rings Not Reportable 10/19/21 22:58 [place] Cells Not Reportable 10/19/21 22:58 Bite Cells Not Reportable 10/19/21 22:58 Crenated Cell Not Reportable 10/19/21 22:58 Elliptocytes Not Reportable 10/19/21 22:58 Acanthocytes (Spur) Not Reportable 10/19/21 22:58 Rouleaux Not Reportable 10/19/21 22:58 Hemoglobin C Crystals Not Reportable 10/19/21 22:58 Schistocytes Not Reportable 10/19/21 22:58 Malaria parasites Not Reportable 10/19/21 22:58 [place] Bodies Not Reportable 10/19/21 22:58 Hem Pathologist Commnt No 10/19/21 22:58 PT 13.2 Sec. (12.2-14.9) 10/19/21 22:58 INR 0.91 (0.87-1.13) 10/19/21 22:58 ABG pH 7.339 pH Units (7.350-7.450) L 10/20/21 00:40 ABG pCO2 50.0 mm Hg 10/20/21 00:40 ABG pO2 54.4 mm Hg (80.0-90.0) L 10/20/21 00:40 ABG HCO3 26.3 mmol/L (20.0-26.0) H 10/20/21 00:40 ABG O2 Saturation 87.6 % (95.0-99.0) L 10/20/21 00:40 ABG O2 Content 17.5 (0.0-44) 10/20/21 00:40 ABG Base Excess -0.2 mmol/L (-2.0-3.0) 10/20/21 00:40 ABG Hemoglobin 14.5 gm/dl (14.0-18.0) 10/20/21 00:40 ABG Carboxyhemoglobin 1.2 % (0.0-5.0) 10/20/21 00:40 ABG Methemoglobin 0.6 % (0.0-1.5) 10/20/21 00:40 Oxyhemoglobin 86.0 % (95.0-99.0) L 10/20/21 00:40 FiO2 21 % 10/20/21 00:40 Sodium 137 mmol/L (137-145) 10/21/21 04:37 Potassium 4.4 mmol/L (3.6-5.0) 10/21/21 04:37 Chloride 99.4 mmol/L (98-107) 10/21/21 04:37 Carbon Dioxide 25 mmol/L (22-30) 10/21/21 04:37 Anion Gap 17 mmol/L 10/21/21 04:37 BUN 17 mg/dL (9-20) 10/21/21 04:37 Creatinine 0.8 mg/dL (0.8-1.3) 10/21/21 04:37 Estimated GFR > 60 ml/min 10/21/21 04:37 BUN/Creatinine Ratio 21 % 10/21/21 04:37 Glucose 140 mg/dL (75-100) H 10/21/21 04:37 Lactic Acid 1.30 mmol/L (0.7-2.0) 10/19/21 22:58 Calcium 9.8 mg/dL (8.4-10.2) 10/21/21 04:37 Magnesium 2.50 mg/dL (1.7-2.3) H 10/19/21 22:58 Total Bilirubin 0.20 mg/dL (0.1-1.2) 10/19/21 22:58 AST 17 units/L (5-40) 10/19/21 22:58 ALT 16 units/L (7-56) 10/19/21 22:58 Alkaline Phosphatase 78 units/L (35-129) 10/19/21 22:58 Total Creatine Kinase 71 units/L (55-170) 10/19/21 22:58 CK-MB (CK-2) 1.6 ng/mL (0.0-4.0) 10/19/21 22:58 CK-MB (CK-2) Rel Index 2.2 (0-4) 10/19/21 22:58 Troponin T < 0.010 ng/mL (0.00-0.029) 10/19/21 22:58 NT-Pro-B Natriuret Pep < 5 pg/mL (0-450) 10/19/21 22:58 Total Protein 7.2 g/dL (6.3-8.2) 10/19/21 22:58 Albumin 4.9 g/dL (3.9-5) 10/19/21 22:58 Albumin/Globulin Ratio 2.1 % 10/19/21 22:58 Lipase 15 units/L (13-60) 10/19/21 22:58 Huff[place]/IV: Voiding Method Toilet Active Medications - Current Medications Current Medications: Generic Name Dose Route Start Last Admin Trade Name Freq PRN Reason Stop Dose Admin Acetaminophen 650 mg 10/20/21 05:53 Acetaminophen 325 Mg Tab PO Q4H PRN Pain MILD(1-3)/Fever >100.5/HARRIS Albuterol 2.5 mg 10/20/21 05:53 Albuterol 2.5 Mg/3 Ml Nebu IH Q3HRT PRN Shortness Of Breath Albuterol/Ipratropium 1 ampul 10/20/21 08:00 10/21/21 02:00 Ipratropium/Albuterol Sulfate 3 Ml Ampul.Neb IH Not Given Q6HRT FELICITA Azithromycin 500 mg 10/21/21 10:00 Azithromycin 250 Mg Tab PO 10/24/21 10:59 QDAY FELICITA Famotidine 20 mg 10/20/21 10:00 10/20/21 22:47 Famotidine 20 Mg Tab PO Not Given BID FELICITA Heparin Sodium (Porcine) 5,000 unit 10/20/21 06:00 10/21/21 06:03 Heparin 5,000 Unit/1 Ml Vial SUB-Q 5,000 unit Q8HR FELICITA Administration Methylprednisolone Sodium Succinate 60 mg 10/20/21 06:00 10/21/21 06:02 Methylprednisolone Sod Succinate 40 Mg/1 Ml Inj IV 60 mg Q8HR FELICITA Administration Morphine Sulfate 2 mg 10/20/21 05:53 Morphine 2 Mg/1 Ml Inj IV Q4H PRN Pain, Moderate (4-6) Morphine Sulfate 4 mg 10/20/21 05:53 Morphine 4 Mg/1 Ml Inj IV Q4H PRN Pain , Severe (7-10) Ondansetron HCl 4 mg 10/20/21 05:53 Ondansetron 4 Mg/2 Ml Inj IV Q8H PRN Nausea And Vomiting Sodium Chloride 10 ml 10/20/21 10:00 10/20/21 22:48 Sodium Chloride 0.9% 10 Ml Flush Syringe IV Not Given BID FELICITA Sodium Chloride 10 ml 10/20/21 05:53 Sodium Chloride 0.9% 10 Ml Flush Syringe IV PRN PRN LINE FLUSH
[2021-10-21 08:29] LABS: Basophils % (Manual) 0 % (0.0-1.8); Eosinophils % (Manual) 0 % (0.0-4.3); Total Cells Counted 100
[2021-10-21 08:31] LABS: Large Platelets Rare; Platelet Estimate Consistent w Auto; Poikilocytosis Rare; Stomatocytes Rare
[2021-10-21 08:57] LABS: Creatine Kinase MB 1.4 ng/mL (0.0-4.0)
--- NOTE | 2021-10-21 09:02 | Electrocardiograph Report ---
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
[2021-10-21] MEDS: FAMOTIDINE 20 MG TAB PO SCH (09:06)
[2021-10-21] MEDS ORDERED: AZITHROMYCIN 250 MG TAB PO SCH (10:00)
--- NOTE | 2021-10-21 14:12 | Discharge Summary ---
Providers - Providers Date of Admission: 10/20/21 05:53 Date of discharge: 10/21/21 Attending physician: JOHN ALCANTARA Primary care physician: KRYSTLE HUNTER MD Hospitalization Condition: Stable Hospital course: -- Acute hypoxic respiratory failure On supplemental oxygen by nasal cannula 3 L/min. Albuterol via nebulizer every 4 hours as needed. DuoNeb via nebulizer every 4 hours. Solu-Medrol 60 mg IV every 8 hours. Zithromax 500 mg IV daily. --Acute bronchitis Oxygen by nasal cannula 3 L/min. Albuterol via nebulizer every 4 hours as needed. DuoNeb via nebulizer every 4 hours. Solu-Medrol 60 mg IV every 8 hours. Zithromax 500 mg IV daily. --Acute pneumonitis Continue empiric antibiotics --Leukocytosis; Due to acute bronchitis and pneumonitis --Ongoing tobacco use We counseled the patient regarding quitting smoking. We will put the patient patient on nicotine patch if needed Smoking cessation counseling --Obesity; BMI 32.1 Patient needs weight reduction when medically stable Counseling done --Full CODE STATUS --DVT prophylaxis Heparin 5000 units subcu every 12 hours for DVT prophylaxis. Pepcid 20 mg p.o. twice daily for GI prophylaxis. Patient is a full code Disposition: LEFT AGAINST MEDICAL ADVICE Final Discharge Diagnosis (Prints w/discharge instructions): Acute hypoxic respiratory failure. Acute bronchitis. Acute pneumonitis. Leukocytosis. Ongoing tobacco use. Obesity BMI 32.1. DVT prophylaxis Exam - Constitutional Vitals: Temp Pulse Resp BP Pulse Ox 97.3 F L 85 20 118/85 96 10/21/21 04:29 10/21/21 08:28 10/21/21 08:28 10/21/21 04:29 10/21/21 08:30 Plan Follow up with: KRYSTLE HUNTER MD [Primary Care Provider] - 3-5 Days
--- NOTE | 2021-10-22 09:08 | Electrocardiograph Report ---
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
== END 2021-10-21 12:05 | disposition left against medical advice (07) | DRG 193 ==
LOC: ED 22:25 → 3A 10-20 05:53
PROVIDERS: ADMIT Hospitalist; ATTEND Internal Medicine
PROC: 4A033R1 Measurement of Arterial Saturation, Peripheral, Percutaneous Approach (ICD-10-PCS; principal; 2021-10-20)
DX: J18.9 Pneumonia, unspecified organism (principal); J96.01 Acute respiratory failure with hypoxia; J20.9 Acute bronchitis, unspecified; Z71.6 Tobacco abuse counseling; E66.9 Obesity, unspecified; Z68.32 Body mass index [BMI] 32.0-32.9, adult; Z53.29 Procedure and treatment not carried out because of patient's decision for other reasons; Z82.49 Family history of ischemic heart disease and other diseases of the circulatory system
CPT/HCPCS: 36415; 71045; 80048; 80053; 82140; 82550; 82553; 82803; 83690; 83735; 83880; 84484; 85007; 85025; 85610; 93005; 94640; 94644; 94760; G0378; J0456; J1644; J1956; J2920